=== PATIENT | male | born 1930 | race African-American/Black ===

== ENCOUNTER → 2019-10-04 | Emergency (ER) | payer OTHER ==
[~2019-10-04] VITALS: Ht 167.6 cm; Wt 63.5 kg
[~2019-10-04] MED LIST: AML5T PO; AMLO10TA13 PO; ATEN-60; ATEN-60 OR; ATENPOW10 PO; CALCTAB5 OR; DOCUSATE SOD 100 MG CAP PO ONE; FAMO-12 PO; HYDR50TA15 PO; LISI-646 PO; MORPHINE SULF INJ 2 MG/ML SYRINGE 1ML IV ONE; MULT-610 OR; NIFE10CA3 OR; NIFE20CA; NIFEDIPINE PO; ONDANSETRON HCL 4 MG/2 ML VIAL IV ONE; TERA10CA36 OR; TERA2CAP45 PO
[2019-10-04 06:18] LABS: Basophils # (auto) 0 uL; Basophils % (auto) 0.5 % (0.0-2.0); Eosinophils # (auto) 0 uL; Eosinophils % (auto) 0.2 % (0.0-7.0); Hematocrit 40.3 % (41.0-53.0); Hemoglobin 13.5 g/dL (13.5-17.5); Lymphocytes # (auto) 0.6 uL; Lymphocytes % (auto) 6.6 % (10.0-50.0); Mean Corpuscular Hemoglobin 31.4 pg (28.0-32.0); Mean Corpuscular Hgb Conc. 33.4 g/dL (32.0-36.0); Mean Corpuscular Volume 93.8 fL (80.0-100.0); Monocytes # (auto) 0.5 uL; Monocytes % (auto) 5.1 % (0.0-12.0); Neutrophils # (auto) 7.8 uL; Neutrophils % (auto) 87.6 % (37.0-80.0); Platelet Count (auto) 102 10^3/uL (140-450); Red Blood Cells 4.29 10^6/uL (4.5-5.90); Red Cell Distribution Width 13.8 % (11.8-14.3); White Blood Cell 8.9 10^3/uL (4.4-10.8)
[2019-10-04 06:36] LABS: BUN/Creatinine Ratio 18.1; Calcium 8.8 mg/dL (8.5-10.1); Potassium 3.6 mmol/L (3.5-5.1)
[2019-10-04 06:39] LABS: Urine WBC None Seen /hpf (0 - 3)
[2019-10-04 06:45] LABS: Bilirubin, Total 0.4 mg/dL (0.2-1.0); Total Protein 7.6 g/dL (6.4-8.2)
[2019-10-04 06:46] LABS: Urine Amorphous Crystal MANY /hpf (None Seen); Urine Bacteria MOD /hpf (None Seen); Urine Blood Negative /uL (Negative)
[2019-10-04 07:30] VITALS: BP 172/74
== END | disposition home or self-care (01) ==
LOC: EDUNIT# 05:01 → EDBD 05:13 → ER 05:13
DX: N39.0 Urinary tract infection, site not specified (principal); R33.9 Retention of urine, unspecified; I10 Essential (primary) hypertension; Z88.0 Allergy status to penicillin; Z88.1 Allergy status to other antibiotic agents; F17.290 Nicotine dependence, other tobacco product, uncomplicated
CPT/HCPCS: 36415; 51702; 74022; 80053; 81001; 83690; 85025; 93005; 96374; 96375; 99285; J2270; J2405